=== PATIENT | female | born 1950 | race Hispanic/Latino ===

== ENCOUNTER 2022-03-28 12:10 | Emergency (ER) | payer OTHER ==
--- OUTSIDE RECORDS SUMMARY | 2022-03-28 12:26 | XMS REPORT | Continuity of Care Document ---
:1950 Author Organization [facility] t Address [address] [place] [address] Care Team Providers Name Role Phone MEGAN GAMBOA Primary Care Physician Unavailable LICO DIAZ Attending Clinician Unavailable LICO DIAZ Attending Clinician Unavailable SARKIS BECK Attending Clinician Unavailable Lico Diaz MD Attending Clinician ATUL JOYA Attending Clinician Unavailable ATUL JOYA Attending Clinician Unavailable MEGAN GAMBOA Attending Clinician Unavailable CANDE HINDS Attending Clinician Unavailable Megan Gamboa MD Attending Clinician [phone] Jameson Attending Clinician Unavailable Olivia Ozuna MD Attending Clinician Only, Adc Test Attending Clinician Unavailable Martine Iqbal MD Attending Clinician Gonzalo Willett DO Attending Clinician GONZALO WILLETT Attending Clinician Unavailable Doctor Unassigned, Elliott Attending Clinician Unavailable 1, [facility] Sleep Lab Bed Attending Clinician Unavailable Fannie Quinn Attending Clinician [phone] UARELIO RAJPUT Attending Clinician Unavailable Aurelio Rajput MD Attending Clinician JOE CORREIA Attending Clinician Unavailable Joe Correia DO Attending Clinician MARTINE IQBAL Attending Clinician Unavailable [facility], [facility] Lab Main Attending Clinician Unavailable Day Graff MA Attending Clinician Unavailable FROYLAN BRYANT Attending Clinician Unavailable PEYTON SELBY Attending Clinician Unavailable SAADIA KAUR Attending Clinician Unavailable KENDRA_Ceci Admitting Clinician Unavailable OLIVIA OZUNA Admitting Clinician Unavailable JOE CORREIA Admitting Clinician Unavailable MEGAN GAMBOA Admitting Clinician Unavailable Payers Payer Name Policy Type Policy Number Effective Date Expiration Date [facility] - [id number] [facility] COMMUNITY PLAN - DUAL ELIGIBLE (MEDICARE REPLACEMENT/ADVANTA GE - HMO) [facility] [id number] 2020 (MEDICARE 00:00:00 REPLACEMENT/[place]VANTA GE - [place] [id number] [place]ICA[place] Problems Condition Condition Condition Status Onset Resolution Last Treating Co mments Source Name Details Category Date Date Treatment Clinician Date Pain due Pain Due Problem Active Azale a to knee to Knee 6-27 Orthope joint Joint 00:00: dic prosthesis Prosthesis 00 Sp orts Medicin e Pain of Pain of Problem Active Isabel right knee Right Knee 6-27 Or thope joint Joint 00:00: dic 00 Sports Medicin e Acute on Acute on Disease Active Unive rs chronic chronic 5-21 [place] of diastolic diastolic [place] heart heart 00 Medical failure failure Branch Chest pain Chest pain Disease Active U nivers 9-20 ity of 00:00: [place] 00 Medical Branch Postural Postural Disease Active Unive rs dizziness dizziness 9-20 ity of with with 00:00: [place] presyncope presyncope 00 Pr dical Branch R/O R/O Disease Active 2016-03 Univers Keratosis Keratosis 04-14 ity of seborrheic seborrheic 00:00: [place] Medical Branch COPD COPD Disease Active Univers exacerbati exacerbati 04-14 it y of on on 00:00: [place] [address] Medical Branch Morbid Morbid Disease Active Univers obesity obesity ity of [facility] Essential Essential Disease Active Uni vers hypertensi hypertensi it y of [place], [place] benign [place] Mixed Mixed Disease Active Univers hyperlipid hyperlipid it y of emia emia [facility] ANJU ANJU Disease Active Univers (obstructi (obstructi it y of ve sleep ve sleep [place] apnea) apnea) Medical Branch Asthma Asthma Disease Active Univers ity of [facility] DJD DJD Disease Active Overview: Univer s (degenerat (degenerat Formattin ity of [place] joint [place] joint g of this [place] disease) disease) note Medica l of knee of knee might be Branch different from the original. s/p juan carlos total knee replaceme nts R 12/2009; L 07/2009 Arthritis Arthritis Disease Active Overview: Univers involving involving Formattin i ty of multiple multiple g of this [place] as sites sites note Medical might be Branch different from the original. hips, hands, feet DJD DJD Disease Active Univers (degenerat (degenerat it y [place] disease), disease), Medi john multiple multiple Branch sites sites Uterine Uterine Disease Active Overview: Univ ers cancer cancer Formattin ity of g of this [place] note Medical might be Branch different from the original. s/p partial hysterect bhavna - remission since late Diet-contr Diet-contr Disease Active U nivers olled olled ity of diabetes diabetes [place] mellitus mellitus Medica l Branch Allergies, Adverse Reactions, Alerts Allergy Allergy Status Severity Reaction(s) Onset Inactive Treating Comm ents Source Name Type Date Date Clinician Iodine Propensi Active Hiv Methodi And ty to [address] [facility] Iodide adverse 00:00: [facility] Containi reaction 00 l ng s to Products drug SULFAMET DRUG Active Hiv Univers HOPRIM 6-13 ity of DS 00:00: [place] [address] Medical Branch Sulfamet Propensi Active Univer s hoprim ty to 613 ity of Ds adverse 00:00: [place] reaction 00 Medical s Branch TRAMADOL DRUG Active ITCHING Univers INGREDI 7-02 ity of 00:00: [place] 00 Medical Branch Tramadol Propensi Active Itching Unive rs ty to 7-02 ity of adverse 00:00: [place] reaction 00 Medical s Branch IODINE DRUG Active Hives 2010-03 Univers INGREDI 0-03 ity of 00:00: [place] 00 Medical Branch Iodine Propensi Active Hives 2010-03 Univers ty to 0-03 ity of adverse 00:00: [place] reaction 00 Medical s Branch Social History Social Habit Start Date Stop Date Quantity Comments Source Exposure to 2022-03-12 2022-03-22 Not sure [facility] SARS-CoV-2 00:00:00 16:03:00 [place] Medical (event) Branch Alcohol intake 2022-03-22 2022-03-22 Current University of 00:00:00 00:00:00 non-drinker of [facility] alcohol (finding) Branch Tobacco use and 2021-09-28 2021-09-28 Smokeless tobacco Un iversity of exposure 00:00:00 00:00:00 non-user [facility] Tobacco Comment 2021-09-28 2021-09-28 former smoker, Unive rsity of 00:00:00 00:00:00 stopped at age 33 [facility] edical Branch History of 1997-09-26 Cigarette Smoker Universi ty of tobacco use 00:00:00 [facility] Sex Ass[birth year] [facility] 00:00:00 00:00:00 Smoking Status Start Date Stop Date Source Tobacco smoking [facility] consumption unknown Ex-smoker 2021-09-28 00:00:00 2021-09-28 [place] [facility] 00:00:00 Medical Branch Medications Ordered Filled Start Stop Current Ordering Indication Dosage Frequency Signature Comments Components Source Medication Medication Date Date Medication? Clinician (SIG) Name Name olopatadine Yes 1[drp] Place 1 U nivers 0.7 % Drop 7-13 Drop in ity of 13:57: each eye [place] 53 as needed Medical for Branch Itching. POTASSIUM Yes Take by Unive rs ORAL 7-13 mouth. ity of 13:57: [place] 53 Medical Branch cyanocobala Yes 5000mg Take 5,000 Univers min, 7-13 mg by ity of vitamin 13:57: mouth. [place] B- 53 Medical (VITAMIN Branch B-12 ORAL) cholecalcif 0 Yes 500U Take 500 Un desiree joel, 7-13 Units by ity of vitamin D3, 13:57: mouth. [place] (VITAMIN D3 53 Medical ORAL) Branch collagen, 0 Yes Univers hydrolysate 7-13 ity of , bovine, 13:57: [place] (COLLAGEN, 53 Medical HYDR, Branch BOVINE,, BULK, MISC) docosahexae 0 Yes Take by Uni vers noic 7-13 mouth. ity of acid/epa 13:57: [place] (FISH OIL 53 Medical ORAL) Branch vitamin E Yes Take by Unive rs acetate 7-13 mouth. ity of (VITAMIN E 13:57: [place] ORAL) Medical Branch ascorbic Yes Take by Univer s acid 7-13 mouth. ity of (VITAMIN C 13:57: [place] ORAL) Medical Branch olopatadine Yes 1[drp] Place 1 U nivers 0.7 % Drop 7-13 Drop in ity of 13:57: each eye [place] [address] as needed Medical for Branch Itching. POTASSIUM Yes Take by Unive rs ORAL 7-13 mouth. ity of 13:57: [place] [address] Medical Branch cyanocobala Yes 5000mg Take 5,000 Univers min, 7-13 mg by ity of vitamin 13:57: mouth. [place] Medical (VITAMIN Branch B-12 ORAL) cholecalcif 0 Yes 500U Take 500 Un desiree joel, 7-13 Units by ity of vitamin D3, 13:57: mouth. [place] (VITAMIN D3 53 Medical ORAL) Branch collagen, 0 Yes Univers hydrolysate 7-13 ity of , bovine, 13:57: [place] (COLLAGEN, 53 Medical HYDR, Branch BOVINE,, BULK, MISC) docosahexae 0 Yes Take by Uni vers noic 7-13 mouth. ity of acid/epa 13:57: [place] (FISH OIL 53 Medical ORAL) Branch vitamin E 2022-0 Yes Take by Unive rs acetate 7-13 mouth. ity of (VITAMIN E 13:57: [place] ORAL) 53 Medical Branch ascorbic Yes Take by Univer s acid 7-13 mouth. ity of (VITAMIN C 13:57: [place] ORAL) 53 Medical Branch olopatadine Yes 1[drp] Place 1 U nivers 0.7 % Drop 7-13 Drop in ity of 13:57: each eye [place] 53 as needed Medical for Branch Itching. POTASSIUM Yes Take by Unive rs ORAL 7-13 mouth. ity of 13:57: [place] [address] Medical Branch cyanocobala Yes 5000mg Take 5,000 Univers min, 7-13 mg by ity of vitamin 13:57: mouth. [place] B-, 53 Medical (VITAMIN Branch B-12 ORAL) cholecalcif Yes 500U Take 500 Un desiree joel, 7-13 Units by ity of vitamin D3, 13:57: mouth. [facility] (VITAMIN D3 53 Medical ORAL) Branch collagen, 0 Yes Univers hydrolysate 7-13 ity of , bovine, 13:57: [place] (COLLAGEN, 53 Medical HYDR, Branch BOVINE,, BULK, MISC) docosahexae Yes Take by Uni vers noic 7-13 mouth. ity of acid/epa 13:57: [place] (FISH OIL 53 Medical ORAL) Branch vitamin E Yes Take by Unive rs acetate 7-13 mouth. ity of (VITAMIN E 13:57: [place] ORAL) 53 Medical Branch ascorbic Yes Take by Univer s acid 7-13 mouth. ity of (VITAMIN C 13:57: [place] ORAL) 53 Medical Branch olopatadine Yes 1[drp] Place 1 U nivers 0.7 % Drop 7-13 Drop in ity of 13:57: each eye [place] 53 as needed Medical for Branch Itching. POTASSIUM 0 Yes Take by Unive rs ORAL 7-13 mouth. ity of 13:57: [place] [address] Medical Branch cyanocobala Yes 5000mg Take 5,000 Univers min, 7-13 mg by ity of vitamin 13:57: mouth. [place] B-, 53 Medical (VITAMIN Branch B-12 ORAL) cholecalcif 0 Yes 500U Take 500 Un desiree joel, 7-13 Units by ity of vitamin D3, 13:57: mouth. [place] (VITAMIN D3 53 Medical ORAL) Branch collagen, 0 Yes Univers hydrolysate 7-13 ity of , bovine, 13:57: [place] (COLLAGEN, 53 Medical HYDR, Branch BOVINE,, BULK, MISC) docosahexae 0 Yes Take by Uni vers noic 7-13 mouth. ity of acid/epa 13:57: [place] (FISH OIL 53 Medical ORAL) Branch vitamin E 0 Yes Take by Unive rs acetate 7-13 mouth. ity of (VITAMIN E 13:57: [place] ORAL) 53 Medical Branch ascorbic 0 Yes Take by Univer s acid 7-13 mouth. ity of (VITAMIN C 13:57: [place] ORAL) 53 Medical Branch olopatadine Yes 1[drp] Place 1 U nivers 0.7 % Drop 7-13 Drop in ity of 13:57: each eye [place] [address] as needed Medical for Branch Itching. POTASSIUM Yes Take by Unive rs ORAL 7-13 mouth. ity of 13:57: [place] [address] Medical Branch cyanocobala 0 Yes 5000mg Take 5,000 Univers min, 7-13 mg by ity of vitamin 13:57: mouth. [place] B-12, 53 Medical (VITAMIN Branch B-12 ORAL) cholecalcif 0 Yes 500U Take 500 Un desiree joel, 7-13 Units by ity of vitamin D3, 13:57: mouth. [place] (VITAMIN D3 53 Medical ORAL) Branch collagen, 0 Yes Univers hydrolysate 7-13 ity of , bovine, 13:57: [place] (COLLAGEN, 53 Medical HYDR, Branch BOVINE,, BULK, MISC) docosahexae 0 Yes Take by Uni vers noic 7-13 mouth. ity of acid/epa 13:57: [place] (FISH OIL 53 Medical ORAL) Branch vitamin E 0 Yes Take by Unive rs acetate 7-13 mouth. ity of (VITAMIN E 13:57: [place] ORAL) 53 Medical Branch ascorbic 0 Yes Take by Univer s acid 7-13 mouth. ity of (VITAMIN C 13:57: [place] ORAL) 53 Medical Branch olopatadine Yes 1[drp] Place 1 U nivers 0.7 % Drop 7-13 Drop in ity of 13:57: each eye [place] 53 as needed Medical for Branch Itching. POTASSIUM 0 Yes Take by Unive rs ORAL 7-13 mouth. ity of 13:57: [place] [address] Medical Branch cyanocobala Yes 5000mg Take 5,000 Univers min, 7-13 mg by ity of vitamin 13:57: mouth. [place] B-12, 53 Medical (VITAMIN Branch B-12 ORAL) cholecalcif 0 Yes 500U Take 500 Un desiree joel, 7-13 Units by ity of vitamin D3, 13:57: mouth. [place] (VITAMIN D3 53 Medical ORAL) Branch collagen, 0 Yes Univers hydrolysate 7-13 ity of , bovine, 13:57: [place] (COLLAGEN, 53 Medical HYDR, Branch BOVINE,, BULK, MISC) docosahexae Yes Take by Uni vers noic 7-13 mouth. ity of acid/epa 13:57: [place] (FISH OIL 53 Medical ORAL) Branch vitamin E Yes Take by Unive rs acetate 7-13 mouth. ity of (VITAMIN E 13:57: [place] ORAL) 53 Medical Branch ascorbic Yes Take by Univer s acid 7-13 mouth. ity of (VITAMIN C 13:57: [place] ORAL) 53 Medical Branch olopatadine Yes 1[drp] Place 1 U nivers 0.7 % Drop 7-13 Drop in ity of 13:57: each eye [place] 53 as needed Medical for Branch Itching. POTASSIUM Yes Take by Unive rs ORAL 7-13 mouth. ity of 13:57: [place] [address] Medical Branch cyanocobala Yes 5000mg Take 5,000 Univers min, 7-13 mg by ity of vitamin 13:57: mouth. [place] B-12, 53 Medical (VITAMIN Branch B-12 ORAL) cholecalcif 0 Yes 500U Take 500 Un desiree joel, 7-13 Units by ity of vitamin D3, 13:57: mouth. [place] (VITAMIN D3 53 Medical ORAL) Branch collagen, 2022-0 Yes Univers hydrolysate 7-13 ity of , bovine, 13:57: [place] (COLLAGEN, 53 Medical HYDR, Branch BOVINE,, BULK, MISC) docosahexae 0 Yes Take by Uni vers noic 7-13 mouth. ity of acid/epa 13:57: [place] (FISH OIL 53 Medical ORAL) Branch vitamin E 0 Yes Take by Unive rs acetate 7-13 mouth. ity of (VITAMIN E 13:57: [place] ORAL) 53 Medical Branch ascorbic 0 Yes Take by Univer s acid 7-13 mouth. ity of (VITAMIN C 13:57: [place] ORAL) 53 Medical Branch olopatadine Yes 1[drp] Place 1 U nivers 0.7 % Drop 7-13 Drop in ity of 13:57: each eye [place] 53 as needed Medical for Branch Itching. POTASSIUM Yes Take by Unive rs ORAL 7-13 mouth. ity of 13:57: [place] 53 Medical Branch cyanocobala Yes 5000mg Take 5,000 Univers min, 7-13 mg by ity of vitamin 13:57: mouth. [place] B-12, 53 Medical (VITAMIN Branch B-12 ORAL) cholecalcif Yes 500U Take 500 Un desiree joel, 7-13 Units by ity of vitamin D3, 13:57: [facility]. [facility] 53 Medical ORAL) Branch collagen, Yes Univers hydrolysate 7-13 ity of , bovine, 13:57: [place] (COLLAGEN, 53 Medical HYDR, Branch BOVINE,, BULK, MISC) docosahexae 0 Yes Take by Uni vers noic 7-13 mouth. ity of acid/epa 13:57: [place] (FISH OIL 53 Medical ORAL) Branch vitamin E Yes Take by Unive rs acetate 7-13 mouth. ity of (VITAMIN E 13:57: [place] ORAL) 53 Medical Branch ascorbic 0 Yes Take by Univer s acid 7-13 mouth. ity of (VITAMIN C 13:57: [place] ORAL) 53 Medical Branch olopatadine Yes 1[drp] Place 1 U nivers 0.7 % Drop 7-13 Drop in ity of 13:57: each eye [place] 53 as needed Medical for Branch Itching. POTASSIUM Yes Take by Unive rs ORAL 7-13 mouth. ity of 13:57: [place] 53 Medical Branch cyanocobala Yes 5000mg Take 5,000 Univers min, 7-13 mg by ity of vitamin 13:57: mouth. [place] B-12, 53 Medical (VITAMIN Branch B-12 ORAL) cholecalcif 0 Yes 500U Take 500 Un desiree joel, 7-13 Units by ity of vitamin D3, 13:57: mouth. [place] (VITAMIN D3 53 Medical ORAL) Branch collagen, 0 Yes Univers hydrolysate 7-13 ity of , bovine, 13:57: [place] (COLLAGEN, 53 Medical HYDR, Branch BOVINE,, BULK, MISC) docosahexae Yes Take by Uni vers noic 7-13 mouth. ity of acid/epa 13:57: [place] (FISH OIL 53 Medical ORAL) Branch vitamin E Yes Take by Unive rs acetate 7-13 mouth. ity of (VITAMIN E 13:57: [place] ORAL) 53 Medical Branch ascorbic Yes Take by Univer s acid 7-13 mouth. ity of (VITAMIN C 13:57: [place] ORAL) 53 Medical Branch amLODIPine Yes [id number] 5mg Take 1 Un desiree 5 mg tablet 6-08 tablet by ity of 00:00: mouth [place] 00 daily. Medical Branch amLODIPine Yes [id number] 5mg Take 1 Un desiree 5 mg tablet 6-08 tablet by ity of 00:00: mouth [place] 00 daily. Medical Branch amLODIPine 0 Yes [id number] 5mg Take 1 Un desiree 5 mg tablet 6-08 tablet by ity of 00:00: mouth [place] 00 daily. Medical Branch amLODIPine 0 Yes [id number] 5mg Take 1 Un desiree 5 mg tablet 6-08 tablet by ity of 00:00: mouth [place] 00 daily. Medical Branch amLODIPine 0 Yes [id number] 5mg Take 1 Un desiree 5 mg tablet 6-08 tablet by ity of 00:00: mouth [place] 00 daily. Medical Branch amLODIPine 0 Yes [id number] 5mg Take 1 Un desiree 5 mg tablet 6-08 tablet by ity of 00:00: mouth [place] 00 daily. Medical Branch amLODIPine 0 Yes [id number] 5mg Take 1 Un desiree 5 mg tablet 6-08 tablet by ity of 00:00: mouth [place] 00 daily. Medical Branch amLODIPine 0 Yes [id number] 5mg Take 1 Un desiree 5 mg tablet 6-08 tablet by ity of 00:00: mouth [place] 00 daily. Medical Branch amLODIPine 0 Yes [id number] 5mg Take 1 Un desiree 5 mg tablet 6-08 tablet by ity of 00:00: mouth [place] 00 daily. Medical Branch naproxen 0 Yes [id number] 550mg Take 1 Univers sodium 5-11 [id number] tablet by ity of (ANAPROX 00:00: mouth 2 [place] DS) 550 mg 00 (two) Medical tablet times Branch daily with meals. methylPREDN 0 Yes [id number] Take by Univers ISolone 5-11 [id number] mouth ity of (MEDROL, 00:00: SEE-INSTRU [place] AMADO,) 4 mg 00 CTIONS. Medica l tablets follow Branch package directions naproxen 0 Yes [id number] 550mg Take 1 Univers sodium 5-11 [id number] tablet by ity of (ANAPROX 00:00: mouth 2 [place] DS) 550 mg 00 (two) Medical tablet times Branch daily with meals. methylPREDN 2021-0 Yes [id number] Take by Univers ISolone 5-11 [id number] mouth ity of (MEDROL, 00:00: SEE-INSTRU [place] AMADO,) 4 mg 00 CTIONS. Medica l tablets follow Branch package directions naproxen 2021-0 Yes [id number] 550mg Take 1 Univers sodium 5-11 [id number] tablet by ity of (ANAPROX 00:00: mouth 2 [place] DS) 550 mg 00 (two) Medical tablet times Branch daily with meals. methylPREDN 2021-0 Yes [id number] Take by Univers ISolone 5-11 [id number] mouth ity of (MEDROL, 00:00: SEE-INSTRU [place] AMADO,) 4 mg 00 CTIONS. Medica l tablets follow Branch package directions naproxen 2021-0 Yes [id number] 550mg Take 1 Univers sodium 5-11 [id number] tablet by ity of (ANAPROX 00:00: mouth 2 [place] DS) 550 mg 00 (two) Medical tablet times Branch daily with meals. methylPREDN 2-0 Yes [id number] Take by Univers ISolone 5-11 [id number] mouth ity of (MEDROL, 00:00: SEE-INSTRU [place] AMADO,) 4 mg 00 CTIONS. Medica l tablets follow Branch package directions naproxen 2-0 Yes [id number] 550mg Take 1 Univers sodium 5-11 [id number] tablet by ity of (ANAPROX 00:00: mouth 2 [place] DS) 550 mg 00 (two) Medical tablet times Branch daily with meals. methylPREDN 2021-0 Yes [id number] Take by Univers ISolone 5-11 [id number] mouth ity of (MEDROL, 00:00: SEE-INSTRU [place] AM[place]O,) 4 mg 00 CTIONS. Medica l tablets follow Branch package directions naproxen 2021-0 Yes [id number] 550mg Take 1 Univers sodium 5-11 [id number] tablet by ity of (ANAPROX 00:00: mouth 2 [place] DS) 550 mg 00 (two) Medical tablet times Branch daily with meals. methylPREDN 2021-0 Yes [id number] Take by Univers ISolone 5-11 [id number] mouth ity of (MEDROL, 00:00: SEE-INSTRU [place] AMADO,) 4 mg 00 CTIONS. Medica l tablets follow Branch package directions naproxen 2021-0 Yes [id number] 550mg Take 1 Univers sodium 5-11 [id number] tablet by ity of (ANAPROX 00:00: mouth 2 [place] DS) 550 mg 00 (two) Medical tablet times Branch daily with meals. methylPREDN 2-0 Yes [id number] Take by Univers ISolone 5-11 [id number] mouth ity of (MEDROL, 00:00: SEE-INSTRU [place] AMADO,) 4 mg 00 CTIONS. Medica l tablets follow Branch package directions naproxen 2-0 Yes [id number] 550mg Take 1 Univers sodium 5-11 [id number] tablet by ity of (ANAPROX 00:00: mouth 2 [place] DS) 550 mg 00 (two) Medical tablet times Branch daily with meals. methylPREDN 2022-0 Yes [id number] Take by Univers ISolone 5-11 [id number] mouth ity of (MEDROL, 00:00: SEE-INSTRU [place] AMADO,) 4 mg 00 CTIONS. Medica l tablets follow Branch package directions naproxen Yes [id number] 550mg Take 1 Univers sodium 5-11 [id number] tablet by ity of (ANAPROX 00:00: mouth 2 [place] DS) 550 mg 00 (two) Medical tablet times Branch daily with meals. methylPREDN Yes [id number] Take by Univers ISolone 5-11 [id number] mouth ity of (MEDROL, 00:00: SEE-INSTRU [place] AMADO,) 4 mg 00 CTIONS. Medica l tablets follow Branch package directions fluticasone Yes [id number] 1{spray Use 1 Univers propionate 3-14 } [place] in ity o f 50 00:00: each [place] mcg/actuati 00 nostril Medic al on nasal daily. Branch spray Nebulizer Yes [id number] Provide Univers Accessories 3-14 nebulizer ity of Kit 00:00: kit and [place] 00 needed Medical accessorie Branch s. albuterol Yes [id number] 2.5mg Inhale 3 Univers 2.5 mg /3 3-14 mL every 4 ity of mL (0.083 00:00: (four) [place] %) 00 hours as Medical nebulizer needed for Bran ch solution Wheezing or Shortness of Breath. May also nebulize one extra every 6 hours. albuterol Yes [id number] 2{puff} Inhale 2 Univers 90 3-14 Puffs ity of mcg/actuati 00:00: every 4 [place] on inhaler 00 (four) Medical hours as Branch needed for Wheezing or Shortness of Breath. benzonatate Yes [id number] 100mg Take 1 Univers 100 mg 3-14 capsule by ity of capsule 00:00: mouth [place] 00 every 8 Medical (eight) Branch hours as needed for Cough. fluticasone Yes [id number] 1{spray Use 1 Univers propionate 3-14 } [place] in ity o f 50 00:00: each [place] mcg/actuati 00 nostril Medic al on nasal daily. Branch spray Nebulizer Yes [id number] Provide Univers Accessories 3-14 nebulizer ity of Kit 00:00: kit and [place] 00 needed Medical accessorie Branch s. albuterol 2021-0 Yes [id number] 2.5mg Inhale 3 Univers 2.5 mg /3 3-14 mL every 4 ity of mL (0.083 00:00: (four) [place] %) 00 hours as Medical nebulizer needed for Bran ch solution Wheezing or Shortness of Breath. May also nebulize one extra every 6 hours. albuterol 2021-0 Yes [id number] 2{puff} Inhale 2 Univers 90 3-14 Puffs ity of mcg/actuati 00:00: every 4 [place] on inhaler 00 (four) Medical hours as Branch needed for Wheezing or Shortness of Breath. benzonatate 2021-0 Yes [id number] 100mg Take 1 Univers 100 mg 3-14 capsule by ity of capsule 00:00: mouth [place] 00 every 8 Medical (eight) Branch hours as needed for Cough. fluticasone 2021- Yes [id number] 1{spray Use 1 Univers propionate 3-14 } [place] in ity o f 50 00:00: each [place] mcg/actuati 00 nostril Medic al on nasal daily. Branch spray Nebulizer Yes [id number] Provide Univers Accessories 3-14 nebulizer ity of Kit 00:00: kit and [place] 00 needed Medical accessorie Branch s. albuterol 2021-0 Yes [id number] 2.5mg Inhale 3 Univers 2.5 mg /3 3-14 mL every 4 ity of mL (0.083 00:00: (four) [place] %) 00 hours as Medical nebulizer needed for Bran ch solution Wheezing or Shortness of Breath. May also nebulize one extra every 6 hours. albuterol 2021- Yes [id number] 2{puff} Inhale 2 Univers 90 3-14 Puffs ity of mcg/actuati 00:00: every 4 [place] on inhaler 00 (four) Medical hours as Branch needed for Wheezing or Shortness of Breath. benzonatate 2021-0 Yes [id number] 100mg Take 1 Univers 100 mg 3-14 capsule by ity of capsule 00:00: mouth [place] 00 every 8 Medical (eight) Branch hours as needed for Cough. fluticasone 2021-0 Yes [id number] 1{spray Use 1 Univers propionate 3-14 } [place] in ity o f 50 00:00: each [place] mcg/actuati 00 nostril Medic al on nasal daily. Branch spray Nebulizer Yes [id number] Provide Univers Accessories 3-14 nebulizer ity of Kit 00:00: kit and [place] 00 needed Medical accessorie Branch s. albuterol Yes [id number] 2.5mg Inhale 3 Univers 2.5 mg /3 3-14 mL every 4 ity of mL (0.083 00:00: (four) [place] %) 00 hours as Medical nebulizer needed for Bran ch solution Wheezing or Shortness of Breath. May also nebulize one extra every 6 hours. albuterol Yes [id number] 2{puff} Inhale 2 Univers 90 3-14 Puffs ity of mcg/actuati 00:00: every 4 [place] on inhaler 00 (four) Medical hours as Branch needed for Wheezing or Shortness of Breath. benzonatate Yes [id number] 100mg Take 1 Univers 100 mg 3-14 capsule by ity of capsule 00:00: mouth [place] 00 every 8 Medical (eight) Branch hours as needed for Cough. fluticasone Yes [id number] 1{spray Use 1 Univers propionate 3-14 } [place] in ity o f 50 00:00: each [place] mcg/actuati 00 nostril Medic al on nasal daily. Branch spray Nebulizer Yes [id number] Provide [facility] Accessories 3-14 nebulizer ity of Kit 00:00: kit and 00 needed Medical accessorie Branch s. albuterol Yes [id number] 2.5mg Inhale 3 Univers 2.5 mg /3 3-14 mL every 4 ity of mL (0.083 00:00: (four) [place] %) 00 hours as Medical nebulizer needed for Bran ch solution Wheezing or Shortness of Breath. May also nebulize one extra every 6 hours. albuterol Yes [id number] 2{puff} Inhale 2 Univers 90 3-14 Puffs ity of mcg/actuati 00:00: every 4 [place] as on inhaler 00 (four) Medical hours as Branch needed for Wheezing or Shortness of Breath. benzonatate 2022-0 Yes [id number] 100mg Take 1 Univers 100 mg 3-14 capsule by ity of capsule 00:00: mouth [place] 00 every 8 Medical (eight) Branch hours as needed for Cough. fluticasone Yes [id number] 1{spray Use 1 [facility] propionate 3-14 } [place] in ity o f 50 00:00: each [place] mcg/actuati 00 nostril Medic al on nasal daily. Branch spray Nebulizer Yes [id number] Provide [facility] Accessories 3-14 nebulizer ity of Kit 00:00: kit and [place] 00 needed Medical accessorie Branch s. albuterol Yes [id number] 2.5mg Inhale 3 Univers 2.5 mg /3 3-14 mL every 4 ity of mL (0.083 00:00: (four) [place] %) 00 hours as Medical nebulizer needed for Bran ch solution Wheezing or Shortness of Breath. May also nebulize one extra every 6 hours. albuterol Yes [id number] 2{puff} Inhale 2 [facility] 90 3-14 Puffs ity of mcg/actuati 00:00: every 4 [place] as on inhaler 00 (four) Medical hours as Branch needed for Wheezing or Shortness of Breath. benzonatate 0 Yes [id number] 100mg Take 1 [facility] 100 mg 3-14 capsule by ity of capsule 00:00: mouth [place] 00 every 8 Medical (eight) Branch hours as needed for Cough. fluticasone Yes [id number] 1{spray Use 1 [facility] propionate 3-14 } [place] in ity o f 50 00:00: each [place] mcg/actuati 00 nostril Medic al on nasal daily. Branch spray Nebulizer Yes [id number] Provide [facility] Accessories 3-14 nebulizer ity of Kit 00:00: kit and [place] 00 needed Medical accessorie Branch s. albuterol 0 Yes [id number] 2.5mg Inhale 3 Univers 2.5 mg /3 3-14 mL every 4 ity of mL (0.083 00:00: (four) [place] %) 00 hours as Medical nebulizer needed for Bran ch solution Wheezing or Shortness of Breath. May also nebulize one extra every 6 hours. albuterol Yes [id number] 2{puff} Inhale 2 [facility] 90 3-14 Puffs ity of mcg/actuati 00:00: every 4 [place] as on inhaler 00 (four) Medical hours as Branch needed for Wheezing or Shortness of Breath. benzonatate 0 Yes [id number] 100mg Take 1 [facility] 100 mg 3-14 capsule by ity of capsule 00:00: mouth [place] 00 every 8 Medical (eight) Branch hours as needed for Cough. fluticasone Yes [id number] 1{spray Use 1 [facility] propionate 3-14 } [place] in ity o f 50 00:00: each [place] mcg/actuati 00 nostril Medic al on nasal daily. Branch spray Nebulizer Yes [id number] Provide [facility] Accessories 3-14 nebulizer ity of Kit 00:00: kit and 00 needed Medical accessorie Branch s. albuterol Yes [id number] 2.5mg Inhale 3 Univers 2.5 mg /3 3-14 mL every 4 ity of mL (0.083 00:00: (four) [place] %) 00 hours as Medical nebulizer needed for Bran ch solution Wheezing or Shortness of Breath. May also nebulize one extra every 6 hours. albuterol Yes [id number] 2{puff} Inhale 2 [facility] 90 3-14 Puffs ity of mcg/actuati 00:00: every 4 [place] as on inhaler 00 (four) Medical hours as Branch needed for Wheezing or Shortness of Breath. benzonatate Yes [id number] 100mg Take 1 [facility] 100 mg 3-14 capsule by ity of capsule 00:00: mouth [place] 00 every 8 Medical (eight) Branch hours as needed for Cough. fluticasone Yes [id number] 1{spray Use 1 [facility] propionate 3-14 } [place] in ity o f 50 00:00: each [place] mcg/actuati 00 nostril Medic al on nasal daily. Branch spray Nebulizer Yes [id number] Provide [facility] Accessories 3-14 nebulizer ity of Kit 00:00: kit and 00 needed Medical accessorie Branch s. albuterol Yes [id number] 2.5mg Inhale 3 Univers 2.5 mg /3 3-14 mL every 4 ity of mL (0.083 00:00: (four) [place] %) 00 hours as Medical nebulizer needed for Bran ch solution Wheezing or Shortness of Breath. May also nebulize one extra every 6 hours. albuterol Yes [id number] 2{puff} Inhale 2 [facility] 90 3-14 Puffs ity of mcg/actuati 00:00: every 4 [place] as on inhaler 00 (four) Medical hours as Branch needed for Wheezing or Shortness of Breath. benzonatate Yes [id number] 100mg Take 1 [facility] 100 mg 3-14 capsule by ity of capsule 00:00: mouth [place] 00 every 8 Medical (eight) Branch hours as needed for Cough. rosuvastati Yes [id number] 10mg Take 1 Univers n (CRESTOR) 1-12 tablet by ity of 10 mg 00:00: mouth at [place] tablet 00 bedtime. Medical Branch rosuvastati Yes [id number] 10mg Take 1 Univers n (CRESTOR) 1-12 tablet by ity of 10 mg 00:00: mouth at [place] tablet 00 bedtime. Medical Branch rosuvastati Yes [id number] 10mg Take 1 Univers n (CRESTOR) 1-12 tablet by ity of 10 mg 00:00: mouth at [place] tablet 00 bedtime. Medical Branch rosuvastati Yes [id number] 10mg Take 1 Univers n (CRESTOR) 1-12 tablet by ity of 10 mg 00:00: mouth at [place] tablet 00 bedtime. Medical Branch rosuvastati Yes [id number] 10mg Take 1 Univers n (CRESTOR) 1-12 tablet by ity of 10 mg 00:00: mouth at [place] tablet 00 bedtime. Medical Branch rosuvastati Yes [id number] 10mg Take 1 Univers n (CRESTOR) 1-12 tablet by ity of 10 mg 00:00: mouth at [place] tablet 00 bedtime. Medical Branch rosuvastati Yes [id number] 10mg Take 1 Univers n (CRESTOR) 1-12 tablet by ity of 10 mg 00:00: mouth at [place] tablet 00 bedtime. Medical Branch rosuvastati Yes [id number] 10mg Take 1 Univers n (CRESTOR) 1-12 tablet by ity of 10 mg 00:00: mouth at [place] tablet 00 bedtime. Medical Branch rosuvastati 0 Yes [id number] 10mg Take 1 Univers n (CRESTOR) 1-12 tablet by ity of 10 mg 00:00: mouth at [place] tablet 00 bedtime. Medical Branch amlodipine amlodipine No amlodipine [place] 5 mg tablet 5 mg tablet 5 mg O rthope TAKE 1 TAKE 1 tablet dic TABLET BY TABLET BY TAKE 1 Spo rts MOUTH DAILY MOUTH DAILY TABLET BY Medicin MOUTH e DAILY Immunizations Ordered Filled Immunization Date Status Comments [facility] e Immunization Name Name Influenza Virus 2021-05-30 Completed Universit y of Vaccine,quad 00:00:00 [place] [facility],preserve Free Branch 65+ Influenza Virus 2021-05-30 Completed Universit y of Vaccine,quad 00:00:00 [place] [facility] Im,preserve Free Branch 65+ Influenza Virus 2021-05-30 Completed Universit y of Vaccine,quad 00:00:00 [place] [facility] Im,preserve Free Branch 65+ Influenza Virus 2021-05-30 Completed Universit y of Vaccine,quad 00:00:00 [place] [facility] Im,preserve Free Branch 65+ Influenza Virus 2021-05-30 Completed Universit y of Vaccine,quad 00:00:00 [place] [facility] Im,preserve Free Branch 65+ Influenza Virus 2021-05-30 Completed Universit y of Vaccine,quad 00:00:00 [place] [facility] Im,preserve Free Branch 65+ Influenza Virus 2021-05-30 Completed Universit y of Vaccine,quad 00:00:00 [place] [facility] Im,preserve Free Branch 65+ Influenza Virus 2021-05-30 Completed Universit y of Vaccine,quad 00:00:00 [place] [facility] Im,preserve Free Branch 65+ Influenza Virus 2021-05-30 Completed Universit y of Vaccine,quad 00:00:00 [place] [facility] Im,preserve Free Branch 65+ Influenza High Dose 2020-03-09 Completed Unive rsity of 00:00:00 [facility] Influenza High Dose 2020-03-09 Completed Unive rsity of 00:00:00 [facility] Influenza High Dose 2020-03-09 Completed Unive rsity of 00:00:00 [facility] Influenza High Dose 2020-03-09 Completed Unive rsity of 00:00:00 [facility] Influenza High Dose 2020-03-09 Completed Unive rsity of 00:00:00 [facility] Influenza High Dose 2020-03-09 Completed Unive rsity of 00:00:00 [facility] Influenza High Dose 2020-03-09 Completed Unive rsity of 00:00:00 [facility] Influenza High Dose 2020-03-09 Completed Unive rsity of 00:00:00 [facility] Influenza High Dose 2020-03-09 Completed Unive rsity of 00:00:00 [facility] Influenza High Dose 2020-03-02 Completed Unive rsity of 00:00:00 [facility] Influenza High Dose 2020-03-02 Completed Unive rsity of 00:00:00 [facility] Influenza High Dose 2020-03-02 Completed Unive rsity of 00:00:00 [facility] Influenza High Dose 2020-03-02 Completed Unive rsity of 00:00:00 [facility] Influenza High Dose 2020-03-02 Completed Unive rsity of 00:00:00 [facility] Influenza High Dose 2020-03-02 Completed Unive rsity of 00:00:00 [facility] Influenza High Dose 2020-03-02 Completed Unive rsity of 00:00:00 [facility] Influenza High Dose 2020-03-02 Completed Unive rsity of 00:00:00 [facility] Influenza High Dose 2020-03-02 Completed Unive rsity of 00:00:00 [facility] Zoster Vaccine 2018-12-13 Completed University of Recombinant 00:00:00 [facility] Pneumococcal 13 2018-12-13 Completed Universit y of Conjugate, PCV13 00:00:00 [facility] dical (Prevnar 13) Branch Influenza High Dose 2018-12-13 Completed Unive rsity of 00:00:00 [facility] Zoster Vaccine 2018-12-13 Completed University of Recombinant 00:00:00 [facility] Pneumococcal 13 2018-12-13 Completed Universit y of Conjugate, PCV13 00:00:00 [facility] dical (Prevnar 13) Branch Influenza High Dose 2018-12-13 Completed Unive rsity of 00:00:00 [facility] Zoster Vaccine 2018-12-13 Completed University of Recombinant 00:00:00 [facility] Pneumococcal 13 2018-12-13 Completed Universit y of Conjugate, PCV13 00:00:00 [place] [facility] (Prevnar 13) Branch Influenza High Dose 2018-12-13 Completed Unive rsity of 00:00:00 [facility] Zoster Vaccine 2018-12-13 Completed University of Recombinant 00:00:00 [facility] Pneumococcal 13 2018-12-13 Completed Universit y of Conjugate, PCV13 00:00:00 [place] [facility] (Prevnar 13) Branch Influenza High Dose 2018-12-13 Completed Unive rsity of 00:00:00 [facility] Zoster Vaccine 2018-12-13 Completed University of Recombinant 00:00:00 [facility] Pneumococcal 13 2018-12-13 Completed Universit y of Conjugate, PCV13 00:00:00 [place] [facility] (Prevnar 13) Branch Influenza High Dose 2018-12-13 Completed Unive rsity of 00:00:00 [facility] Zoster Vaccine 2018-12-13 Completed University of Recombinant 00:00:00 [facility] Pneumococcal 13 2018-12-13 Completed Universit y of Conjugate, PCV13 00:00:00 [place] [facility] (Prevnar 13) Branch Influenza High Dose 2018-12-13 Completed Unive rsity of 00:00:00 [facility] Zoster Vaccine 2018-12-13 Completed University of Recombinant 00:00:00 [facility] Pneumococcal 13 2018-12-13 Completed Universit y of Conjugate, PCV13 00:00:00 [facility] dical (Prevnar 13) Branch Influenza High Dose 2018-12-13 Completed Unive rsity of 00:00:00 [facility] Zoster Vaccine 2018-12-13 Completed University of Recombinant 00:00:00 [facility] Pneumococcal 13 2018-12-13 Completed Universit y of Conjugate, PCV13 00:00:00 [place] [facility] (Prevnar 13) Branch Influenza High Dose 2018-12-13 Completed Unive rsity of 00:00:00 [facility] Zoster Vaccine 2018-12-13 Completed University of Recombinant 00:00:00 [facility] Pneumococcal 13 2018-12-13 Completed Universit y of Conjugate, PCV13 00:00:00 [place] [facility] (Prevnar 13) Branch Influenza High Dose 2018-12-13 Completed Unive rsity of 00:00:00 [facility] Zoster Vaccine 2018-07-29 Completed University of Recombinant 00:00:00 [facility] Zoster Vaccine 2018-07-29 Completed University of Recombinant 00:00:00 [facility] Zoster Vaccine 2018-07-29 Completed University of Recombinant 00:00:00 [facility] Zoster Vaccine 2018-07-29 Completed University of Recombinant 00:00:00 [facility] Zoster Vaccine 2018-07-29 Completed University of Recombinant 00:00:00 [facility] Zoster Vaccine 2018-07-29 Completed University of Recombinant 00:00:00 [facility] Zoster Vaccine 2018-07-29 Completed University of Recombinant 00:00:00 [facility] Zoster Vaccine 2018-07-29 Completed University of Recombinant 00:00:00 [facility] Zoster Vaccine 2018-07-29 Completed University of Recombinant 00:00:00 [facility] Pneumococcal 13 2018-07-26 Completed Universit y of Conjugate, PCV13 00:00:00 [place] [facility] (Prevnar 13) Branch Pneumococcal 13 2018-07-26 Completed Universit y of Conjugate, PCV13 00:00:00 [place] [facility] (Prevnar 13) Branch Pneumococcal 13 2018-07-26 Completed Universit y of Conjugate, PCV13 00:00:00 [place] [facility] (Prevnar 13) Branch Pneumococcal 13 2018-07-26 Completed Universit y of Conjugate, PCV13 00:00:00 [place] [facility] (Prevnar 13) Branch Pneumococcal 13 2018-07-26 Completed Universit y of Conjugate, PCV13 00:00:00 [place] [facility] (Prevnar 13) Branch Pneumococcal 13 2018-07-26 Completed Universit y of Conjugate, PCV13 00:00:00 [place] [facility] (Prevnar 13) Branch Pneumococcal 13 2018-07-26 Completed Universit y of Conjugate, PCV13 00:00:00 [place] [facility] (Prevnar 13) Branch Pneumococcal 13 2018-07-26 Completed Universit y of Conjugate, PCV13 00:00:00 [place] [facility] (Prevnar 13) Branch Pneumococcal 13 2018-07-26 Completed Universit y of Conjugate, PCV13 00:00:00 [facility] dical (Prevnar 13) Branch Influenza High Dose 2017-12-26 Completed Unive rsity of 00:00:00 [facility] Influenza High Dose 2017-12-26 Completed Unive rsity of 00:00:00 [facility] Influenza High Dose 2017-12-26 Completed Unive rsity of 00:00:00 [place] [facility] Influenza High Dose 2017-12-26 Completed Unive rsity of 00:00:00 [facility] Influenza High Dose 2017-12-26 Completed Unive rsity of 00:00:00 [facility] Influenza High Dose 2017-12-26 Completed Unive rsity of 00:00:00 [facility] Influenza High Dose 2017-12-26 Completed Unive rsity of 00:00:00 [facility] Influenza High Dose 2017-12-26 Completed Unive rsity of 00:00:00 [facility] Influenza High Dose 2017-12-26 Completed Unive rsity of 00:00:00 [facility] Influenza High Dose 2016-12-26 Completed Unive rsity of 00:00:00 [facility] Influenza High Dose 2016-12-26 Completed Unive rsity of 00:00:00 [facility] Influenza High Dose 2016-12-26 Completed Unive rsity of 00:00:00 [facility] Influenza High Dose 2016-12-26 Completed Unive rsity of 00:00:00 [facility] Influenza High Dose 2016-12-26 Completed Unive rsity of 00:00:00 [facility] Influenza High Dose 2016-12-26 Completed Unive rsity of 00:00:00 [facility] Influenza High Dose 2016-12-26 Completed Unive rsity of 00:00:00 [facility] Influenza High Dose 2016-12-26 Completed Unive rsity of 00:00:00 [facility] Influenza High Dose 2016-12-26 Completed Unive rsity of 00:00:00 [facility] Influenza Virus 2015-04-21 Completed Universit y of Vaccine Quad IM 3+ 00:00:00 [facility] Pneumococcal 2015-04-21 Completed University o f Polysaccharide, 00:00:00 [place] [facility] ical PPSV23 (PNEUMOVAX) Branch Influenza Virus 2015-04-21 Completed Universit y of Vaccine Quad IM 3+ 00:00:00 [facility] Pneumococcal 2015-04-21 Completed University o f Polysaccharide, 00:00:00 [place] [facility] ical PPSV23 (PNEUMOVAX) Branch Influenza Virus 2015-04-21 Completed Universit y of Vaccine Quad IM 3+ 00:00:00 [facility] Pneumococcal 2015-04-21 Completed University o f Polysaccharide, 00:00:00 [place] [facility] ical PPSV23 (PNEUMOVAX) Branch Influenza Virus 2015-04-21 Completed Universit y of Vaccine Quad IM 3+ 00:00:00 [facility] Pneumococcal 2015-04-21 Completed University o f Polysaccharide, 00:00:00 [place] Med ical PPSV23 (PNEUMOVAX) Branch Influenza Virus 2015-04-21 Completed Universit y of Vaccine Quad IM 3+ 00:00:00 [facility] Pneumococcal 2015-04-21 Completed University o f Polysaccharide, 00:00:00 [place] [facility] ical PPSV23 (PNEUMOVAX) Branch Influenza Virus 2015-04-21 Completed Universit y of Vaccine Quad IM 3+ 00:00:00 [facility] Pneumococcal 2015-04-21 Completed University o f Polysaccharide, 00:00:00 [place] [facility] ical PPSV23 (PNEUMOVAX) Branch Influenza Virus 2015-04-21 Completed Universit y of Vaccine Quad IM 3+ 00:00:00 [facility] Pneumococcal 2015-04-21 Completed University o f Polysaccharide, 00:00:00 [place] [facility] ical PPSV23 (PNEUMOVAX) Branch Influenza Virus 2015-04-21 Completed Universit y of Vaccine Quad IM 3+ 00:00:00 [facility] Pneumococcal 2015-04-21 Completed University o f Polysaccharide, 00:00:00 [place] [facility] ical PPSV23 (PNEUMOVAX) Branch Influenza Virus 2015-04-21 Completed Universit y of Vaccine Quad IM 3+ 00:00:00 [facility] Pneumococcal 2015-04-21 Completed University o f Polysaccharide, 00:00:00 [place] [facility] ical PPSV23 (PNEUMOVAX) Branch Influenza Virus 2015-01-11 Completed Universit y of Vaccine Quad IM 00:00:00 [place] [facility] ical Multi-dose 6+ MO Branch Influenza Virus 2015-01-11 Completed Universit y of Vaccine Quad IM 00:00:00 [place] [facility] ical Multi-dose 6+ MO Branch Influenza Virus 2015-01-11 Completed Universit y of Vaccine Quad IM 00:00:00 [place] [facility] ical Multi-dose 6+ MO Branch Influenza Virus 2015-01-11 Completed Universit y of Vaccine Quad IM 00:00:00 [place] Med ical Multi-dose 6+ MO Branch Influenza Virus 2015-01-11 Completed Universit y of Vaccine Quad IM 00:00:00 [place] Med ical Multi-dose 6+ MO Branch Influenza Virus 2015-01-11 Completed Universit y of Vaccine Quad IM 00:00:00 [place] Med ical Multi-dose 6+ MO Branch Influenza Virus 2015-01-11 Completed Universit y of Vaccine Quad IM 00:00:00 [place] Med ical Multi-dose 6+ MO Branch Influenza Virus 2015-01-11 Completed Universit y of Vaccine Quad IM 00:00:00 [place] Med ical Multi-dose 6+ MO Branch Influenza Virus 2015-01-11 Completed Universit y of Vaccine Quad IM 00:00:00 [place] Med ical Multi-dose 6+ MO Branch Pneumococcal 2014-03-20 Completed University o f Polysaccharide, 00:00:00 [place] Med ical PPSV23 (PNEUMOVAX) Branch Pneumococcal 2014-03-20 Completed University o f Polysaccharide, 00:00:00 [place] Med ical PPSV23 (PNEUMOVAX) Branch Pneumococcal 2014-03-20 Completed University o f Polysaccharide, 00:00:00 [place] Med ical PPSV23 (PNEUMOVAX) Branch Pneumococcal 2014-03-20 Completed University o f Polysaccharide, 00:00:00 [place] Med ical PPSV23 (PNEUMOVAX) Branch Pneumococcal 2014-03-20 Completed University o f Polysaccharide, 00:00:00 [place] Med ical PPSV23 (PNEUMOVAX) Branch Pneumococcal 2014-03-20 Completed University o f Polysaccharide, 00:00:00 [place] Med ical PPSV23 (PNEUMOVAX) Branch Pneumococcal 2014-03-20 Completed University o f Polysaccharide, 00:00:00 [place] Med ical PPSV23 (PNEUMOVAX) Branch Pneumococcal 2014-03-20 Completed University o f Polysaccharide, 00:00:00 [place] Med ical PPSV23 (PNEUMOVAX) Branch Pneumococcal 2014-03-20 Completed University o f Polysaccharide, 00:00:00 [place] Med ical PPSV23 (PNEUMOVAX) Branch Influenza Virus 2014-02-24 Completed Universit y of Vaccine 00:00:00 [facility] Influenza Virus 2014-02-24 Completed Universit y of Vaccine 00:00:00 [facility] Influenza Virus 2014-02-24 Completed Universit y of Vaccine 00:00:00 [facility] Influenza Virus 2014-02-24 Completed Universit y of Vaccine 00:00:00 [facility] Influenza Virus 2014-02-24 Completed Universit y of Vaccine 00:00:00 [facility] Influenza Virus 2014-02-24 Completed Universit y of Vaccine 00:00:00 [facility] Influenza Virus 2014-02-24 Completed Universit y of Vaccine 00:00:00 [facility] Influenza Virus 2014-02-24 Completed Universit y of Vaccine 00:00:00 [facility] Influenza Virus 2014-02-24 Completed Universit y of Vaccine 00:00:00 [facility] TDAP 2011-03-19 Completed University of 00:00:00 [facility] TDAP 2011-03-19 Completed University of 00:00:00 [facility] TDAP 2011-03-19 Completed University of 00:00:00 [facility] TDAP 2011-03-19 Completed University of 00:00:00 [facility] TDAP 2011-03-19 Completed University of 00:00:00 [facility] TDAP 2011-03-19 Completed University of 00:00:00 [facility] TDAP 2011-03-19 Completed University of 00:00:00 [facility] TDAP 2011-03-19 Completed University of 00:00:00 [facility] TDAP 2011-03-19 Completed University of 00:00:00 [facility] Vital Signs Vital Name Observation Time Observation Value Comments Source Systolic blood 2022-03-22 22:28:00 171 mm[Hg] Univer sity of pressure [facility] Diastolic blood 2022-03-22 22:28:00 72 mm[Hg] Unive rsity of pressure [facility] Heart rate 2022-03-22 22:28:00 93 /min [facility] Respiratory rate 2022-03-22 22:22:00 19 /min [facility] 2022-03-22 22:22:00 149.9 cm [facility] Body weight 2022-03-22 22:22:00 126.327 kg [facility] BMI 2022-03-22 22:22:00 56.25 kg/m2 [facility] Oxygen saturation in 2022-03-22 22:22:00 95 /min [facility] Arterial blood by [facility] Pulse oximetry Branch Systolic blood 2021-09-28 19:01:00 141 mm[Hg] Univer sity of pressure [facility] Diastolic blood 2021-09-28 19:01:00 80 mm[Hg] Unive rsity of pressure [facility] Heart rate 2021-09-28 19:01:00 79 /min [facility] Respiratory rate 2021-09-28 18:56:00 19 /min [facility] Body height 2021-09-28 18:56:00 149.9 cm [facility] Body weight 2021-09-28 18:56:00 126.327 kg [facility] BMI 2021-09-28 18:56:00 56.25 kg/m2 [facility] Oxygen saturation in 2021-09-28 18:56:00 95 /min [facility] Arterial blood by [facility] Pulse oximetry [place] Systolic blood 2021-10-29 00:30:00 148 mm[Hg] [facility] pressure Diastolic blood 2021-10-29 00:30:00 69 mm[Hg] [facility] pressure Heart rate 2021-10-29 00:30:00 93 /min [facility] Respiratory rate 2021-10-29 00:30:00 19 /min [facility] Oxygen saturation in 2021-10-29 00:30:00 98 /min [facility] Arterial blood by Pulse oximetry Body temperature 2021-10-28 22:00:00 36.11 Marg[place]ite [facility] Body height 2021-10-28 21:04:00 149.9 cm [facility] Body weight 2021-10-28 21:04:00 124.195 kg [facility] BMI 2021-10-28 21:04:00 55.30 kg/m2 [facility] Procedures Procedure Date / Time Performing Clinician Source Performed CV LEFT HEART CATH LV 2021-10-28 21:40:04 Olivia Ozuna [facility] GRAM WITH CORS ESTIMATED GFR 2021-10-28 17:37:00 Olivia Ozuna spital POC PANEL 2021-10-28 17:37:00 Olivia Ozuna PROTHROMBIN TIME WITH 2021-10-28 17:26:00 Olivia Ozuna [facility] INR CBC WITH PLATELET AND 2021-10-28 17:21:00 Olivia Ozuna [facility] DIFFERENTIAL ESTIMATED GFR 2021-10-28 17:20:00 Olivia Ozuna spital ECG PRE/POST OP 2021-10-28 15:39:54 Olivia Ozuna spital ASSIGNMENT OF BENEFITS 2021-10-27 16:28:46 Doctor Unassigned, No [facility] XR, knee, 4 or more 2021-09-12 00:00:00 Isabel Galloway rthopedic view Sports Medicine Plan of Care Planned Activity Planned Date Details Comments Source Future Scheduled 2022-02-28 COVID-19 VACCINE (#1) [facility] Test 12:53:46 [code = COVID-19 VACCINE (#1)] Future Scheduled 2022-02-28 Hepatitis C screening [facility] Test 12:53:46 (procedure) [code = [id number]] Future Scheduled 2022-02-28 BREAST CANCER [facility] Test 12:53:46 SCREENING [code = BREAST CANCER SCREENING] Future Scheduled 2022-02-28 COLONOSCOPY SCREENING [facility] Test 12:53:46 [code = COLONOSCOPY SCREENING] Future Scheduled 2022-02-28 INFLUENZA VACCINE [facility] Test 12:53:46 [code = INFLUENZA VACCINE] Encounters Start End Encounter Admission Attending Care Care Encounter Source Date/Time Date/Time Type Type Clinicians Facility Department ID 2022-03-22 2022-03-22 Office Jeo WISWETHA [id number] [id number] [facility] 16:30:00 17:00:00 Visit Lico FREIRE 350.1.13.10 [facility] 4.2.7.2.686 [place] FISCHER [phone] [address] 2022-03-22 2022-03-22 Outpatient R LICO DIAZ [facility] [id number] Univers 16:30:00 16:30:00 LICO DIAZ [facility] 2022-01-27 2022-01-27 Outpatient R ATUL JOYA [facility] [id number] Univers 11:30:00 11:30:00 ATUL JOYA [facility] 2022-01-13 2022-01-13 Outpatient R ATUL JOYA [facility] [id number] Univers 09:30:00 09:30:00 ATUL JOYA [facility] 2022-01-09 2022-01-09 Outpatient R BEE [facility] [id number] Univers 10:00:00 10:00:00 MEGAN [facility] 2022-01-06 2022-01-06 Outpatient R AVRILMYRNA [facility] [id number] Univers 08:00:00 08:00:00 CANDE [facility] 2022-01-03 2022-01-03 [facility] [id number] Univers 15:40:00 15:40:00 MEGAN [facility] 2021-11-21 2021-11-21 [place] [facility] 1.2.840.114 [id number] [facility] 00:00:00 00:00:00 Megan FRIERE 350.1.13.10 [facility] 4.2.7.2.686 [place] waters PROFESSIO [id number] Pr dical [address] 2021-11-16 2021-11-16 Outpatient FOG_Ihekwea AOSM AOSM [id number] Isabel 00:00:00 00:00:00 Rony 808237 Orth ope [facility] 2021-11-14 2021-11-14 Outpatient FOG_Ihekwea AOSM AOSM 632 [id number] Isabel 00:00:00 00:00:00 Rony 540496 Orth ope dic Sports Medicin e 2021-10-28 2021-10-28 [facility], 1.2.840.1 [id number] 10681 Methodi 08:28:00 20:05:00 Karthikeyan Weiss 47182.1.1 842 s t 3.430.2.7 Hospit a .3.710713 l .8 2021-10-28 2021-10-28 Surgery [facility], 1.2.840.1 [id number] Methodi 16:00:00 17:20:[address] 3.430.2.7 Hospit a .3.776531 l .8 2021-10-28 2021-10-28 Outpatient [facility] [id number] 994 [place] 00:00:00 00:00:00 NADIM [address] 2021-10-27 2021-10-27 Laboratory Only, Adc Test [facility] 1.2.840. 114 [id number] Univers 11:15:00 11:30:00 Only Martine Iqbal 350.1.13.10 ity of [place] 4.2.7.2.686 [facility] [phone] [facility] [address] 2021-10-27 2021-10-27 Outpatient Tori WILLETT [facility] [id number] Univers 11:15:00 11:15:00 GONZALO ituri of [facility] 2021-10-27 2021-10-27 Orders Doctor ROXANA 1.2.840.114 [id number] [facility] 00:00:00 00:00:00 Only Unassigned, MINNIE 350.1.13.10 ity of [place] [facility] 4.2.7.2.686 [place] as [phone] [facility] [address] 2021-10-20 2021-10-20 Telephone Bee [facility] 1.2.840.114 [id number] [facility] 00:00:00 00:00:00 Megan FREIRE 350.1.13.10 it[facility] [place] [phone] Pr dical [facility] [address] [facility] 2021-10-14 2021-10-14 Lab Reubenlarissajulien, 1.2.840.1 [id number] Methodi 11:40:00 11:45:[address]14[address]1.[address] 3.430.2.7 Hospit a .3.715757 l .8 2021-10-14 2021-10-14 Outpatient REUBENMILI [facility] [id number] [place] 00:00:00 00:00:[address] NADIM [address] 2021-10-14 2021-10-14 Travel 1.2.840.1 1.2.065.126 [id number] Methodi 00:00:00 00:00:[address] 3.430.2.7 0.2.7.3.698 Ho spita .3.927547 084.8 l .8 2021-10-11 2021-10-11 Outpatient R LICO DIAZ [facility] [id number] Univers 19:30:00 19:30:00 REBECA DIAZVTPhilip ity [facility] 2021-10-08 2021-10-08 Outpatient R [facility] [id number] Univers 10:00:00 10:00:00 ity [facility] 2021-10-06 2021-10-06 Outpatient FOG_Ihekwea AOSM AOSM [id number] [id number] Isabel 01:22:00 01:22:00 Rony 225132 Orth ope dic Sports Medicin e 2021-10-03 2021-10-03 Telephone [facility] 1.2.840.114 [id number] Univers 00:00:00 00:00:00 Megan FREIRE 350.1.13.10 ity [facility] [place] [phone] Pr dical NAL 231 [facility] 2021-09-30 2021-09-30 Telephone [facility] 1.2.840.114 [id number] [facility] 00:00:00 00:00:00 Strahil T [place] 350.1.13.10 ity of [facility] [place] [phone] Pr dical NAL 059 [facility] 2021-09-28 2021-09-28 [facility] 1.2.525.703 [id number] Univers 13:40:00 14:00:00 Visit Strahil T [place] 350.1.13.10 ity of [facility] 4.[place] [phone] Me dical NAL 085 [facility] 2021-09-28 2021-09-28 Outpatient R LIZCLYDE LICO [facility] [id number] Univers 13:40:00 13:40:00 REBECA DIAZKISHORPhilip [facility] 2021-09-22 2021-09-22 Bread Pan Greaser 1, [facility] Sleep Lab Bed [facility] 1. 2.840.114 [id number] Univers 20:00:00 22:30:00 Visit Megan Gamboa 350.1. 13.10 ity of [facility] 4.2.7.2.686 [facility] [phone] [facility] [address] [place] 2021-09-22 2021-09-22 Outpatient Tori GAMBOA [facility] [id number] Univers 20:00:00 20:00:00 MEGAN villalobos [facility] 2021-09-22 2021-09-22 Outpatient Tori AGMBOA [facility] [id number] Univers 20:00:00 20:00:00 MEGAN villalobos [facility] 2021-09-22 2021-09-22 Laboratory Only, [facility] Test [facility] 1.2.840. 114 [id number] Univers 10:30:00 10:45:00 Only Megan Gamboa 350.1. 13.10 ity of [place] 4.2.7.2.686 [facility] [phone] [facility] [address] 2021-09-22 2021-09-22 Orders Doctor ROXANA 1.2.840.114 [id number] Univers 00:00:00 00:00:00 Only Unassigned, MINNIE 350.1.13.10 ity of [place] [facility] 4.2.7.2.686 [facility] [phone] [facility] [address] 2021-09-13 2021-09-13 Outpatient FOG_Ihekwea AOSM AOSM [id number] [id number] Isabel 11:08:00 11:08:00 Rony 864341 Orth ope dic Sports Medicin [facility] 2021-09-12 2021-09-12 Outpatient FOG_Ihekwea AOSM AOSM 632 6301-20 Isabel 04:26:00 04:26:00 Rony 223089 Orth ope dic Sports Medicin e 2021-09-12 2021-09-12 Ugonna N AOSM [place] - Ortho [place] 00:00:00 00:00:00 Va Quinn MD: 7401 FOG_Ofc dic [facility] Spo [facility], [place] [phone] , Ph. [id number] 2021-09-12 2021-09-12 Outpatient Kai AOTRIPP AOSM 8cad [id number]-f 00:00:00 00:00:00 Fannie N [id number] 2021-09-05 2021-09-05 Outpatient FOG_Ihekwea AOSM AOSM 632 6301-20 Isabel 02:07:00 02:07:00 Rony 145237 Orth ope dic [facility] Medicin e 2021-09-05 2021-09-05 Outpatient FOG_Ihekwea AOSM AOSM 632 6301-20 Isabel 02:07:00 02:07:00 Rony 163572 Orth ope dic Sports Medicin e 2021-09-05 2021-09-05 [place] [address].2.840.114 [id number] [facility] 00:00:00 00:00:00 Megan FREIRE 350.1.13.10 ity of [place] [phone] Pr dical NAL 044 [facility] 2021-08-24 2021-08-24 [facility] 12.840.114 [id number] Univers 00:00:00 00:00:00 Megan FREIRE 350.1.13.10 ity of [place] [phone] Pr dical NAL [address] [place] [address] 2021-08-17 2021-08-17 Office [facility] 1.2.649.014 [id number] Univers 10:20:00 10:40:00 Visit Lico FREIRE 350.1.13.10 ity of [facility] 4.[place] [phone] Pr najma [facility] 085 [facility] 2021-08-17 2021-08-17 Outpatient R JOE REBECAVTPhilip [facility] [id number] Univers 10:20:00 10:20:00 REYNOLDCHERIE [facility] 2021-08-17 2021-08-17 Outpatient R JOE [facility] [id number] Univers 10:20:00 10:20:00 JOE [facility] 2021-08-12 2021-08-12 Outpatient R [facility] [id number] Univers 09:00:00 09:17:28 AURELIO [facility] 2021-08-12 2021-08-12 Office Raj[facility] 1.2.488.142 [id number] Univers 09:00:00 09:17:28 [facility] 350.1.13.10 it y [facility] 4.2.7.2.686 [place] as WILDER?BLEA [phone] [facility] [address] [facility] OFFICE BUILDING 2021-07-30 2021-07-30 Case [facility] 1.2.840.114 [id number] Univers 00:00:00 00:00:00 Management Megan FREIRE 350.1.13.10 ity of [facility] [place] [phone] Pr dicmt NAL [address] [facility] 2021-07-29 2021-07-29 Outpatient R ILZET [facility] [id number] Univers 08:00:00 08:00:00 CANDE [facility] 2021-07-27 2021-07-27 Emergency X , [facility] ERT [id number] Univers 08:08:00 10:05:00 JOE [facility] 2021-07-27 2021-07-27 Emergency Correia, [facility] 1.2.845.267 [id number] Univers 08:08:00 10:05:00 Joe FREIRE 350.1.13.10 i ty of [place] 4.2.7.2.686 [facility] [phone] [facility] [address] 2021-07-27 2021-07-27 Orders Doctor ROXANA 1.2.840.114 [id number] Univers 00:00:00 00:00:00 Only UnassignedMINNIE 350.1.13.10 ity of [place] [facility] 4.2.7.2.686 [place] [phone] [facility] [address] 2021-07-13 2021-07-13 Bread Pan Greaser 1, [facility] Sleep Lab Bed [facility] 1. 2.840.114 [id number] Univers 19:30:00 22:00:00 Visit Lico Diaz 350.1.13. 10 ity of [place] 4.2.7.2.6 [facility] [phone] [facility] [address] 2021-07-13 2021-07-13 Outpatient R LICO DIAZ [facility] [id number] Univers 19:30:00 19:30:00 LICO DIAZ ity of [facility] 2021-07-13 2021-07-13 Orders Doctor SCHMIDT 1.2.840.114 [id number] Univers 00:00:00 00:00:00 Only UnassignedMINNIE 350.1.13.10 ity of [place] [facility] 4.2.7.2.686 [place] [phone] [facility] [address] 2021-07-11 2021-07-11 Laboratory Only, Adc Test [facility] 1.2.840. 114 [id number] Univers 10:30:00 10:45:00 Only Martine Iqbal 350.1.13.10 ity of [place] 4.2.7.2.686 [facility] [phone] [facility] [address] 2021-07-11 2021-07-11 Outpatient R RASHEED [facility] [id number] Univers 10:30:00 10:30:00 MARTINE ituri [facility] 2021-06-15 2021-06-15 Telephone [facility] 1.2.840.114 [id number] Univers 00:00:00 00:00:00 Megan FREIRE 350.1.13.10 ity [place] [phone] Pr najma [facility] 231 [facility] 2021-06-10 2021-06-10 Telephone [facility] 1.2.840.114 [id number] Univers 00:00:00 00:00:00 Megan FREIRE 350.1.13.10 ity of [place] [phone] Pr junioritz [facility] 044 [facility] 2021-06-02 2021-06-02 Outpatient R [facility] RAD [id number] Univers 07:46:59 23:59:00 MEGAN barretoy [facility] 2021-06-02 2021-06-02 [facility] 1.2.840.114 [id number] Univers 07:46:59 23:59:00 Encounter Megan FREIRE 350.1.13.10 ity [place] [id number] [facility] [address] [place] 2021-05-30 2021-05-30 Bread Pan Greaser Shruthi, Araseli Lab Main [facility] 1.2.8 40.114 [id number] Univers 12:00:00 12:15:00 Visit Megan Gamboa 350.1. 13.10 ity of [place] [phone] Pr junioritz [facility] 353 [facility] 2021-05-30 2021-05-30 Outpatient R [facility] [id number] Univers 10:20:00 11:32:50 MEGAN ity [facility] 2021-05-30 2021-05-30 Office [facility] 1.2.840.114 [id number] Univers 10:20:00 11:32:50 Visit Megan Julien FAVIOLATON 350.1.13.10 ity of [place].2.[place] [phone] Pr dic[address] 2021-04-25 2021-04-25 Reftom [facility] 1.2.840.114 [id number] Univers 00:00:00 00:00:00 Megandarrell [place] 350.1.13.10 ity of [place] [phone] [address] 2020-11-26 2020-11-26 Rebecca Garcia 1.2.451.814 [id number] Univers 00:00:00 00:00:00 Day Tomliny 350.1.13.10 it y of [place] [phone] [address] 2020-11-26 2020-11-26 Case Rebecca Graff 1.2.840.114 [id number] Univers 00:00:00 00:00:00 Management Day Ag 350.1.13.10 it[place] of [place] [phone] [address] 2020-09-27 2020-09-27 Outpatient Tori GAMBOA [facility] [id number] Univers 09:20:00 09:20:00 MEGAN villalobos [facility] 2020-06-17 2020-06-17 Outpatient Tori GAMBOA [facility] [id number] Univers 00:00:00 00:00:00 MEGAN villalobos [facility] 2020-03-30 2020-03-30 Outpatient Tori GAMBOA [facility] [id number] Univers 14:40:00 14:40:00 MEGAN villalobos [facility] 2020-01-20 2020-01-20 Outpatient Tori BRYANT [facility] [id number] Univers 08:45:00 08:45:00 FROYLAN villalobos [facility] 2019-12-25 2019-12-25 Outpatient R BEE [facility] [id number] Univers 13:40:00 13:40:00 MEGAN [facility] 2019-09-25 2019-09-25 Outpatient R FADI- [facility] [id number] Univers 00:00:00 00:00:00 SOLO uri [facility] 2019-09-24 2019-09-24 Outpatient R NATASHA, [facility] [id number] Univers 10:15:00 10:15:00 SAADIA [facility] 2019-09-23 2019-09-23 Outpatient R [facility] [id number] Univers 14:40:00 14:40:00 [facility] 2019-03-14 2019-03-14 Outpatient Tori [facility] [id number] Univers 07:28:08 23:59:00 [facility] Results Test Description Test Time Test Comments Results Result Comments Source ECG Pre/Post Op 2021-10-30 20:03:20 Test Item Value Reference Range Interpretation Comme nts Ventricular rate (test code = 253) Atrial rate (test code = 255) CT interval (test code = 266) QRSD interval (test code = 260) QT interval (test code = 264) QTC interval (test code = 265) P axis 1 (test code = 267) QRS axis 1 (test code = 268) T wave axis (test code = 270) EKG impression (test code = 273) Normal sinus rhythm-Left axis priya ation-Left bundle branch block-Abnormal ECG-No previous ECGs available- [facility] [id number] 17:48:01 Test Item Value Reference Range Interpretation Comments POC sodium (test code 141 mmol/L 135-148 = 2947-0) POC potassium (test 4.1 mmol/L 3.5-5.0 code = 6298-4) POC chloride (test 102 mmol/L 99-109 code = 2069-3) POC CO2 (test code = 28 mmol/L -8) POC glucose (test code 107 mg/dL 65-99 H = 2339-0) POC BUN (test code = 12 mg/dL 8-24 6299-2) POC creatinine (test 0.7 mg/dl 0.5-0.9 code = 13410-9) POC hematocrit (test 40 % 37-47 code = 4544-3) POC anion gap (test 16 mmol/L 8-20 Leaf Conditioner Helper Name: Simpson code = 4384675) TeresitaDevi ce ID: [id number] Lab Interpretation Abnormal (test code = 34059-6) [id number] 17:48:00 Test Item Value Reference Range Interpretation Comments Estimated GFR (test mL/min/1.73 m2 Caterg ory Units code = 68543-0) Interpretati onG1 >=90 Normal or highG 2 60-89 Mildly decrease dG3a 45-59 Mildly to moder ately uivllpzawH4j 30 -44 Moderately to s everely decreasedG4 15- 29 Severely decreasedG5 <15 Kidney failureThe eGFR was calculated jae holland the Chronic Kidney Disease Epidemiology Co llaboration (CKD-EPI) equat ion. Interpretation is based on recommendations of the National Kidney Foundation-Kidn ey Disease Outcomes Qualit y Initiative (NKF-KDOQI) pub lished in 2014. [facility]
[2022-03-28 13:19] LABS: Absolute Lymphocytes (CBC) 1.4 K/uL (0.7-4.9); Hematocrit 43.4 % (36.0-45.0); Lymphocytes % 11.9 % (15.3-44.8); MCV 86.7 fL (80-100); MPV 8.6 fL (7.6-11.3)
[2022-03-28 13:28] LABS: Urine Blood Negative (Negative); Urine Glucose Negative (Negative); Urine Protein 2+ (Negative)
[2022-03-28 13:54] LABS: SARS-COV-2 RT PCR POSITIVE (NEGATIVE)
[2022-03-28 13:58] LABS: Urine Bacteria <20 /HPF (<20); Urine Mucus Slight /HPF (None Seen); Urine RBC <5 /HPF (None Seen)
[2022-03-28 14:09] LABS: Albumin 3.4 g/dL (3.4-5.0); Bilirubin Total 0.4 mg/dL (0.2-1.0); Potassium 4.5 mmol/L (3.5-5.1); Protein, Total 7.7 g/dL (6.4-8.2)
--- NOTE | 2022-03-28 14:23 | EDPHYS ---
Physician Documentation [facility] Name: Nataliya Chavez Age: 72 yrs Sex: Female : 1950 Arrival Date: 03/28/2022 Time: 12:15 Bed 13 Private MD: ED Physician German Estrada HPI: 03/28 14:21 This 72 yrs old Female presents to ER via Ambulatory with complaints of kb Nausea, Abdominal Cramping. 14:21 The patient or guardian reports cough, that is intermittent, described as mild. The kb patient has not experienced similar symptoms in the past. The patient has not recently seen a physician. 14:22 Onset: The symptoms/episode began/occurred last week. Severity of symptoms: At their kb worst the symptoms were mild, moderate, in the emergency department the symptoms are unchanged. Modifying factors: The symptoms are alleviated by nothing, the symptoms are aggravated by nothing. Associated signs and symptoms: Pertinent positives: fever, nausea, Pertinent negatives: chest pain, diarrhea, ear ache, rhinorrhea, sore throat, vomiting. Pt reports cough, congestion, nausea and abd cramps that started a week ago. Reports fever on Sunday and only. . Historical: - Allergies: 12:21 Iodine; ll1 12:21 Tramadol HCl; ll1 - PMHx: 12:21 High Cholesterol; Hypertension; ll1 - PSHx: 12:21 foot SX; cardiac cath; ll1 - Immunization history:: Client reports having NOT received the Covid vaccine. - Social history:: Smoking status: Patient denies any tobacco usage or history of. ROS: 14:19 Constitutional: Negative for fever, chills, and weight loss. kb 14:19 ENT: Positive for sinus congestion. 14:19 Respiratory: Positive for cough. 14:19 Abdomen/GI: Positive for nausea, abdominal cramps, Negative for vomiting, diarrhea, constipation. 14:19 All other systems are negative. Exam: 14:19 Constitutional: This is a well developed, well nourished patient who is awake, alert, kb and in no acute distress. Head/Face: Normocephalic, atraumatic. ENT: Moist Mucous membranes Cardiovascular: Regular rate and rhythm with a normal S1 and S2. No gallops, murmurs, or rubs. No pulse deficits. Respiratory: Respirations even and unlabored. No increased work of breathing. Talking in full sentences Abdomen/GI: Soft, non-tender. No distention Skin: Warm, dry with normal turgor. Normal color. MS/ Extremity: Pulses equal, no cyanosis. Neurovascular intact. Full, normal range of motion. Neuro: Awake and alert, GCS 15, oriented to person, place, time, and situation. Moves all extremities. Normal gait. Vital Signs: 12:23 BP 171 / 70; Pulse 68; Resp 18; Temp 97.6; Pulse Ox 97% on R/A; Weight 127.01 kg; ll1 Height 4 ft. 11 in. (149.86 cm); Pain 5/10; 14:50 BP 128 / 70; Pulse 72; Resp 18; Pulse Ox 98% on R/A; kr3 12:23 Body Mass Index 56.55 (127.01 kg, 149.86 cm) ll1 MDM: 12:22 Patient medically screened. kb 14:20 Differential diagnosis: gastritis, viral gastroenteritis, flu, covid. Data reviewed: kb vital signs, nurses notes. I considered the following discharge prescriptions or medication management in the emergency department Antibiotics: At this time antibiotics are not recommended, Antivirals: At this time, antivirals are not recommended. Test considered but Not performed: Other Details CT scan considered, but pt has no abd tenderness. Counseling: I had a detailed discussion with the patient and/or guardian regarding: the historical points, exam findings, and any diagnostic results supporting the discharge/admit diagnosis, lab results, the need for outpatient follow up, a family practitioner, to return to the emergency department if symptoms worsen or persist or if there are any questions or concerns that arise at home. 03/28 12:23 Order name: CBC with Diff; Complete Time: 13:29 kb 03/28 12:23 Order name: CMP; Complete Time: 14:10 kb 03/28 12:23 Order name: Lipase; Complete Time: 14:10 kb 03/28 12:23 Order name: Urine Microscopic Only; Complete Time: 14:06 kb 03/28 12:23 Order name: COVID-19/FLU A+B; Complete Time: 13:55 kb 03/28 13:28 Order name: Urine Dipstick-Ancillary; Complete Time: 13:29 EDMS 03/28 12:23 Order name: IV Saline Lock; Complete Time: 13:15 kb 03/28 12:23 Order name: Labs collected and sent; Complete Time: 13:15 kb 03/28 12:23 Order name: Urine Dipstick-Ancillary (obtain specimen); Complete Time: 13:29 kb 03/28 13:16 Order name: Labs - recollect needed: recollect light green tube; Complete Time: 13:27 bd Administered Medications: No medications were administered Disposition Summary: 03/28/22 14:23 Discharge Ordered Location: Home kb Condition: Stable kb Diagnosis - SARS-associated coronavirus as the cause of diseases classified elsewhere kb Followup: kb - With: Private Physician - When: 2 - 3 days - Reason: Recheck today's complaints, Continuance of care, Re-evaluation by your physician Followup: kb - With: Emergency Department - When: As needed - Reason: Worsening of condition Discharge Instructions: - Discharge Summary Sheet kb - COVID-19 kb - Viral Illness, Adult kb Forms: - Medication Reconciliation Form kb - Thank You Letter kb - Antibiotic Education kb - Prescription Opioid Use kb Prescriptions: - Zofran 4 mg Oral Tablet - take 1 tablet by ORAL route every 8 hours As needed; 10 tablet; Refills: 0, kb Product Selection Permitted - dicyclomine 20 mg Oral Tablet - take 1 tablet by ORAL route 4 times per day As needed; 20 tablet; Refills: 0, kb Product Selection Permitted Signatures: Dispatcher [employer] Amanda Muñiz, WANDYC PETROLOGIST-Antonia Kirkpatrick Lynsay, RN RN ll1
--- NOTE | 2022-03-28 14:23 | ER ---
Nurse's Notes [facility] Name: Nataliya Chavez Age: 72 yrs Sex: Female : 1950 Arrival Date: 03/28/2022 Time: 12:15 Bed 13 Private MD: Diagnosis: SARS-associated coronavirus as the cause of diseases classified elsewhere Presentation: 03/28 12:23 Chief complaint: Patient states: Cough/congestion for 1 week. Nausea with abd cramps ll1 began today. Fever Sun. and last week. Coronavirus screen: Vaccine status: Patient reports being unvaccinated. Client denies travel out of the [place] in the last 14 days. congestion, cough unrelated to allergies, fatigue, fever, muscle pain, nausea, shortness of breath, Client presents with at least one sign or symptom that may indicate coronavirus-19. Standard/surgical mask placed on the client. Ebola Screen: Patient denies travel to an Ebola-affected area in the 21 days before illness onset. Initial Sepsis Screen: Does the patient meet any 2 criteria? No. Patient's initial sepsis screen is negative. Does the patient have a suspected source of infection? Yes: Productive cough/pneumonia. Risk Assessment: Do you want to hurt yourself or someone else? Patient reports no desire to harm self or others. Onset of symptoms was March 21, 2022. 12:23 Method Of Arrival: Ambulatory ll1 12:23 Acuity: MAIN 3 ll1 Triage Assessment: 14:53 GI: Reports diarrhea. kr3 Historical: - Allergies: 12:21 Iodine; ll1 12:21 Tramadol HCl; ll1 - PMHx: 12:21 High Cholesterol; Hypertension; ll1 - PSHx: 12:21 foot SX; cardiac cath; ll1 - Immunization history:: Client reports having NOT received the Covid vaccine. - Social history:: Smoking status: Patient denies any tobacco usage or history of. Screenin:51 [facility] ED Fall Risk Assessment (Adult) History of falling in the last 3 months, kr3 including since admission No falls in past 3 months (0 pts) Confusion or Disorientation No (0 pts) Intoxicated or Sedated No (0 pts) Impaired Gait No (0 pts) Mobility Assist Device Used No (0 pt) Altered Elimination No (0 pt) Score/Fall Risk Level 0 - 2 = Low Risk. Abuse screen: Denies threats or abuse. Nutritional screening: No deficits noted. Tuberculosis screening: No symptoms or risk factors identified. Assessment: 12:35 General: Appears in no apparent distress. comfortable, Behavior is calm, cooperative, kr3 appropriate for age. Pain: Denies pain. Neuro: Level of Consciousness is awake, alert, obeys commands, Oriented to person, place, time, situation. Cardiovascular: Patient's skin is warm and dry. Respiratory: Airway is patent Trachea midline Respiratory effort is even, unlabored, Respiratory pattern is regular, symmetrical. GI: Abdomen is round. : No signs and/or symptoms were reported regarding the genitourinary system. EENT: No signs and/or symptoms were reported regarding the EENT system. Derm: No signs and/or symptoms reported regarding the dermatologic system. Musculoskeletal: No signs and/or symptoms reported regarding the musculoskeletal system. Vital Signs: 12:23 BP 171 / 70; Pulse 68; Resp 18; Temp 97.6; Pulse Ox 97% on R/A; Weight 127.01 kg; ll1 Height 4 ft. 11 in. (149.86 cm); Pain 5/10; 14:50 BP 128 / 70; Pulse 72; Resp 18; Pulse Ox 98% on R/A; kr3 12:23 Body Mass Index 56.55 (127.01 kg, 149.86 cm) ll1 ED Course: 12:15 Patient arrived in ED. mr 12:22 Geo Osunaistin, JOAN is [facility]. kb 12:22 German Estrada MD is Attending Physician. kb 12:24 Triage completed. ll1 12:30 Arm band placed on right wrist. kr3 12:30 Bed in low position. Call light in reach. Side rails up X 1. kr3 12:55 Inserted saline lock: 20 gauge in right antecubital area, using aseptic technique. kj1 Blood collected. 12:55 Initial lab(s) drawn, by me, sent to lab. kj1 13:15 COVID-19/FLU A+B Sent. kj1 13:20 Padmini Gooden, RN is Primary Nurse. kr3 14:52 No provider procedures requiring assistance completed. IV discontinued, intact, kr3 bleeding controlled, No redness/swelling at site. Pressure dressing applied. Administered Medications: No medications were administered Medication: 14:54 VIS not applicable for this client. kr3 Outcome: 14:23 Discharge ordered by MD. stokes 14:52 Discharged to home ambulatory. kr3 14:52 Condition: stable 14:52 Discharge instructions given to patient, Instructed on discharge instructions, follow up and referral plans. medication usage, Demonstrated understanding of instructions, follow-up care, medications, Prescriptions given X 2. 14:54 Patient left the ED. kr3 Signatures: Amanda Osuna, REGAN[employer]-Amanda Estrada mr Osuna, Melani kj1 Conor Marquez, RN RN ll1 Padmini Gooden, KATARZYNA RN kr3 Corrections: (The following items were deleted from the chart) 13:13 13:13 Initial lab(s) drawn, by me, sent to lab. kj1 kj1 14:54 14:50 BP 169 / 70; Pulse 72bpm; Resp 18bpm; Pulse Ox 100% RA; kr3 kr3
[2022-03-28 14:58] VITALS: TEMP 97.6
[2022-03-28 15:00] VITALS: BP 128/70; O2SAT 98
== END 2022-03-28 14:54 | disposition home or self-care (01) ==
LOC: ER 12:10
DX: U07.1 COVID-19 (principal); I10 Essential (primary) hypertension; E78.00 Pure hypercholesterolemia, unspecified; Z88.5 Allergy status to narcotic agent; Z91.048 Other nonmedicinal substance allergy status
CPT/HCPCS: 85025; 36415; 83690; 80053; 0240U; 81003; 81015; 99283